=== PATIENT | female | born 1955 | race Caucasian/White ===

== ENCOUNTER → 2017-04-13 | Day surgery (SDC) | payer OTHER ==
[~2017-04-13] VITALS: Ht 162.6 cm; Wt 83.9 kg
[~2017-04-13] MED LIST: 0.9% Sodium Chloride 1,000 ML IV SCH; ONDA4TAB9 PO; PANT40TA3 PO; Sodium Chloride LOK Flush 10 mL Syringe IV PRN; fentaNYL-PF 50 mCg/mL 2 mL Inj IVPUSH PRN
[2017-04-13 09:10] VITALS: BP 155/94; PULSE 60; RESP 12; O2SAT 96
[2017-04-13 09:57] VITALS: BP 118/78; PULSE 63; RESP 14; O2SAT 90
[2017-04-13 10:07] VITALS: BP 116/74; PULSE 56; RESP 16; O2SAT 93
[2017-04-13 10:17] VITALS: BP 115/79; PULSE 65; RESP 16; O2SAT 96
[2017-04-13 10:24] VITALS: BP 115/79; PULSE 64; RESP 16; O2SAT 97
[2017-04-13 10:29] VITALS: BP 140/90; PULSE 76; RESP 16; O2SAT 96
--- NOTE | 2017-04-13 12:01 | ENDO ---
[address] [address] ENDOSCOPY PROCEDURE PATIENT: RUBEN MONSALVE : 1955 MR#: [id number] ADMIT: 04/13/2017 JOB ID: [id number] OPERATION: Esophagogastroduodenoscopy (EGD) with biopsy. PREOPERATIVE DIAGNOSIS(ES): Epigastric pain, bloating, gastroesophageal reflux disease. POSTOPERATIVE DIAGNOSIS(ES): Mild nonerosive gastritis. ANESTHESIA: Fentanyl 125 mcg, Versed 6 mg IV administered. COMPLICATIONS: None. BLOOD LOSS: Minimal. DESCRIPTION OF PROCEDURE: After the risks and benefits were explained to the patient, informed consent was obtained. After anesthesia was administered, the upper endoscope was inserted into the mouth, intubating the esophagus, stomach, and second portion of duodenum, and the mucosa carefully examined. After the procedure was done, the scope withdrawn and the procedure terminated. FINDINGS: Upon inspection of the esophagus, the esophagus was normal, without masses, ulcers, or lesions. Z-line located 40 cm from incisors. Upon entering the stomach, there was mild nonerosive gastritis that was seen. No masses or ulcers were seen. Retroflexion was normal. Duodenal bulb, first and second portion were normal. Biopsy taken of the duodenum, antrum, body, and distal esophagus. IMPRESSION: Mild nonerosive gastritis. RECOMMENDATION: Await pathology results. Follow up in GI Clinic as needed.
--- NOTE | 2017-04-24 16:34 | PATH ---
SURGICAL PATHOLOGY Attending Physician:Georgi Claros MD CASE STATUS: Signed Out PATIENT NAME: RUBEN MONSALVE PID: [id number] : 1955 DATE COLLECTED:04/13/2017 21:12 SPECIMEN: 1: Duodenum, Biopsy 2: Stomach, Antrum, Biopsy 3: Gastric, Biopsy 4: Esophagus, Biopsy CLINICAL HISTORY: 1). DUODENUM BIOPSY 2). GASTRIC ANTRUM BIOPSY AND RULE OUT H PYLORI 3). GASTRIC BODY 4). DISTAL ESOPHAGUS FINAL DIAGNOSIS: 1.DUODENUM, BIOPSY: - DUODENAL MUCOSA WITH NO DIAGNOSTIC ABNORMALITY. - Negative for active inflammation, features of sprue, dysplasia and malignancy. 2.GASTRIC ANTRUM, BIOPSY: - GASTRIC ANTRAL-TYPE MUCOSA WITH CHRONIC FOCALLY ACTIVE GASTRITIS. - Negative for Helicobacter pylori microorganisms by immunohistochemistry. - Negative for intestinal metaplasia. - Negative for dysplasia and malignancy. 3.GASTRIC BODY, BIOPSY: - GASTRIC BODY-TYPE MUCOSA WITH MILD CHRONIC GASTRITIS. - Negative for Helicobacter pylori microorganisms. - Negative for intestinal metaplasia. - Negative for dysplasia and malignancy. 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 - Negative for dysplasia and malignancy. [id number] GROSS DESCRIPTION: The specimen is received in four formalin filled containers labeled with the patient's name. 1). The specimen is labeled "duodenum" and consists of 3 portions of tissue which aggregate to 0.3 x 0.3 x 0.2 CM. The specimen is entirely submitted in cassette 1A. 2). The specimen is labeled "gastric antrum" and consists of 2 portions of tissue which aggregate to 0.3 x 0.3 x 0.2 CM. The specimen is entirely submitted in cassette 2A. 3). The specimen is labeled "gastric body" and consists of 2 portions of tissue which aggregate to 0.3 x 0.2 x 0.2 CM. The specimen is entirely submitted in cassette 3A. 4). The specimen is labeled "distal esophagus" and consists of 2 portions of tissue which aggregate to 0.3 x 0.3 x 0.3 CM. The specimen is entirely submitted in cassette 4A. 04/13/2017DC MICRO DESCRIPTION: 2. An immunohistochemical stain was performed to evaluate for Helicobacter pylori microorganism. The control stains show appropriate reactivity. As part of routine senior quality assurance engineer sections of the case were also reviewed bu Joselito Centeno and Dr. Carbajal, who agree with the above interpretation. This test was developed and its performance characteristics determined by [facility]. It has not been cleared or approved by the [place]. Food and Drug Administration. The FDA has determined that such clearance or approval is not necessary. This test is used for clinical purposes. It should not be regarded as investigational or for research. ICD-9 CODES: CPT CODES: 1: 33967, 21262 2: 22154 3: 33529 4: 92084 Electronically Signed Out Dash Burciaga MD [facility] [address], [place] [address] Technical component performed at [facility], [address], [place], [address]
== END | disposition home or self-care (01) ==
LOC: END 00:35
PROVIDERS: ATTEND Internal Medicine Gastroenterology
DX: K29.50 Unspecified chronic gastritis without bleeding (principal); K21.9 Gastro-esophageal reflux disease without esophagitis; K44.9 Diaphragmatic hernia without obstruction or gangrene; R10.13 Epigastric pain; F17.210 Nicotine dependence, cigarettes, uncomplicated
CPT/HCPCS: 43239; G0500; J2250; J3010; J7030